=== PATIENT | male | born 1995 | race American Indian/Alaskan Native ===

== ENCOUNTER 2019-06-19 22:04 | Emergency (ER) | payer SELFPAY ==
[2019-06-19 22:09] VITALS: BP 142/86
--- NOTE | 2019-06-19 22:29 | Event Note ---
ED Screening Note Date of service: 06/19/19 Time: 22:28 ED Screening Note: 23 y o male presents with burning with urine was seen at [facility] got a call today that chlamydia was positive so presents here today for treatment This initial assessment/diagnostic orders/clinical plan/treatment(s) is/are subject to change based on patients health status, clinical progression and re- assessment by fellow clinical providers in the ED. Further treatment and workup at subsequent clinical providers discretion. Patient/guardian urged not to elope from the ED as their condition may be serious if not clinically assessed and managed. Initial orders include:
--- NOTE | 2019-06-19 22:33 | Emergency Department Report ---
Chief Complaint: Urogenital-Male Stated Complaint: TREATED FOR STDS Time Seen by Provider: 06/19/19 22:27 - HPI History of Present Illness: 23 y o male presents with burning with urine was seen at health system got a call today that chlamydia was positive so presents here today for treatment - ROS Review of Systems: as noted in HPI - Exam Vital Signs: Vital Signs 06/19/19 22:09 Temperature 97.4 F L Pulse Rate 63 Respiratory 16 Rate Blood Pressure 142/86 O2 Sat by Pulse 99 Oximetry Physical Exam: GEN: aao x 3 ABD: non tender MSE screening note: Focused history and physical exam performed. Due to findings the following was ordered: ED Medical Decision Making - Medical Decision Making My STD mdm ED Disposition for MSE Clinical Impression: Chlamydial urethritis in male Disposition: DC-01 TO HOME OR SELFCARE Is pt being admited?: No Does the pt Need Aspirin: No Condition: Stable Instructions: Chlamydia Infection (ED) Additional Instructions: follow up with health department for further std testing you have been given a prescription for treatment for chlamydia Take as prescribed Prescriptions: metroNIDAZOLE [Flagyl] 500 mg PO ONCE #4 tab Azithromycin [Zithromax TAB] 500 mg PO ONCE #2 tablet Referrals: [facility] [Outside] - 3-5 Days [facility] [Outside] - 3-5 Days Forms: STI Treatment and Prevention, Work/School Release Form(ED) Time of Disposition: 22:33
== END 2019-06-19 22:53 | disposition home or self-care (01) ==
LOC: ED 22:04
DX: A56.01 Chlamydial cystitis and urethritis (principal)